=== PATIENT | male | born 1985 | race Two or more races ===

== ENCOUNTER 2021-03-23 14:30 | Emergency (ER) | payer SELFPAY ==
[~2021-03-23 14:30] MED LIST: CEPH500 PO; HYDACE5 PO; IBUP200; MECL25 PO; PENVK250 PO; RXHYDACE PO; RXPENVK250 PO; [UNRECOGNIZED DRUG - OTHER]
[2021-03-23] MEDS ORDERED: KETO10 PO ×3 (14:45→15:29)
== END 2021-03-23 15:48 | disposition home or self-care (01) ==
LOC: ER 14:30
DX: U07.1 COVID-19 (principal)
CPT/HCPCS: 96372; 99282-25; J0780; J1200; J1885

== ENCOUNTER → 2022-08-23 | Outpatient (CLI) | payer BC ==
[~2022-08-23] MED LIST changes: +KETO10 PO
== END | disposition home or self-care (01) ==
LOC: LAB SHORT 15:32 → LAB 15:32
DX: L72.3 Sebaceous cyst (principal)
CPT/HCPCS: 87070; 87205